=== PATIENT | female | born 1975 | race Caucasian/White ===

== ENCOUNTER 2024-06-21 08:28 | Day surgery (SDC) | payer BC ==
[~2024-06-21] VITALS: Ht 152.4 cm; Wt 88.5 kg
[~2024-06-21 08:28] MED LIST: CETIRIZINE HCL5 MG PO; IBLOOD GLUCOSE TEST STRIP 1 EA TEST VI PRN; LACTATED RINGER'S 1,000 ML IV SCH; LIDOCAINE HCL 1% 5 ML SDV INJ ONE; MIDAZOLAM HCL 5 MG/5 ML VIAL IV PRN; fentaNYL citrate 100 MCG/2 ML VIAL IV PRN
[2024-06-21 08:56] VITALS: BP 130/76
[2024-06-21] MEDS ORDERED: MIDAZOLAM HCL 5 MG/5 ML VIAL ONE (09:38)
[2024-06-21] MEDS ORDERED: fentaNYL citrate 100 MCG/2 ML VIAL ONE (09:39)
[2024-06-21 11:00] VITALS: BP 107/64
--- NOTE | 2024-06-21 11:59 | NUR ---
06/21/24 1159 Courtney Aguilar 1019 PT ARRIVED IN PACU SLEEPY. ABD SOFT AND PASSING FLATUS. 1030 RESTING. REU. 1045 AWAKENS TO VERBAL STIMULI. SITTING UP IN BED SIPPING ON WATER. 1100 C/O FEELING LITEHEADED AFTER GETTING DRESSED. LAYING DOWN ON STRETCHER. O2 SATS 96% ON RA, BP 124/77, P 65 AND R 12. 1105 RESTING. 1117 SITTING AT BEDSIDE. NO C/O'S. DC INSTRUCTIONS GIVEN. LEFT VIA W/C.
--- NOTE | 2024-06-22 10:30 | OR ---
[facility] [address], [place] [address] Signed DATE OF OPERATION: 06/21/2024 SURGEON: Heather Peña MD PREOPERATIVE DIAGNOSES: 1. Rectal bleeding. 2. Hemorrhoids. POSTOPERATIVE DIAGNOSIS: Minimal internal and external hemorrhoids. PROCEDURE: Colonoscopy without biopsy. ESTIMATED BLOOD LOSS: None. INDICATIONS: Bonilla is a 49-year-old female, asked to see me for initial screening colonoscopy. She attributes her intermittent rectal bleeding to her hemorrhoids. She has no family history of colon cancer or polyps. In the office, I had given her a pamphlet on colonoscopy. We had reviewed the nature of the test. There is risk including, but not limited to gas bloating, crampy abdominal pain, bleeding, perforation requiring surgery, and missed diagnosis. We also reviewed the written instructions for the bowel prep line by line. She also understands the need for IV conscious sedation. She understands an adult person has to take her home afterwards. She said that would probably be her . She had expressed understanding and wished to proceed. DESCRIPTION OF PROCEDURE: Bonilla was taken into our endoscopy suite and placed in the left lateral decubitus position. She took a total of 7 mg of Versed and 200 mcg of fentanyl. She is not breathing. It would probably be better for her safety in the future if she has monitored anesthesia care with propofol infusion. A digital rectal exam was performed. She had small external hemorrhoids. She had good sphincter tone. There were no masses. The adult colonoscope was introduced and advanced under direct visualization of the camera. We paused repeatedly and frequently as we slowly gave additional doses of Versed and fentanyl. We used a little bit of abdominal compression and we finally made our way around to the cecum itself. In reality, her colonoscopy is easy from a technical standpoint. That is another reason she would need monitored anesthesia care Versed and fentanyl to get her asleep for this simple Electronically Signed By: HEATHER PEÑA MD 06/22/24 1030 PATIENT NAME: BONILLA BUITRAGO OPERATIVE REPORT DATE OF : 75 REPORT #: [id number] PHYSICIAN: HEATHER PEÑA MD PCP: SAMANTHA CHATTERJEE REPORT IS CONFIDENTIAL AND NOT TO BE RELEASED WITHOUT AUTHORIZATION [facility] [address] [place] [id number] Signed procedure. We could easily see the appendiceal orifice and the ileocecal valve. The scope was then slowly withdrawn. We found no pathology throughout the entire colon. Once in the rectum, the scope was retroflexed, she has very minimal internal hemorrhoid tissue. After this, the gas was suctioned out and the colonoscope removed. Overall, Bonilla tolerated the procedure well. RECOMMENDATIONS: Bonilla can follow up in 10 years for repeat screening colonoscopy. She would be much better served with monitored anesthesia care and propofol infusion as described above. Haether Peña MD ALB/MODL /[id number] cc: MD Dr. Samantha Jimenez Copies: HEATHER PEÑA MD ~ Electronically Signed By: HEATHER PEÑA MD 06/22/24 1030 PATIENT NAME: BONILLA BUITRAGO OPERATIVE REPORT DATE OF : 75 REPORT #: [id number] PHYSICIAN: HEATHER PEÑA MD PCP: SAMANTHA CHATTERJEE REPORT IS CONFIDENTIAL AND NOT TO BE RELEASED WITHOUT AUTHORIZATION
== END 2024-06-21 11:17 | disposition home or self-care (01) ==
LOC: DS 08:28
PROVIDERS: ATTEND Colon & Rectal Surgery
PROC: 0DJD8ZZ Inspection of Lower Intestinal Tract, Via Natural or Artificial Opening Endoscopic (ICD-10-PCS; principal; 2024-06-21 09:45)
DX: K64.8 Other hemorrhoids (principal); K64.4 Residual hemorrhoidal skin tags; K62.5 Hemorrhage of anus and rectum; J45.909 Unspecified asthma, uncomplicated; E66.9 Obesity, unspecified; Z68.36 Body mass index [BMI] 36.0-36.9, adult; Z79.899 Other long term (current) drug therapy; Z91.018 Allergy to other foods; Z91.038 Other insect allergy status
CPT/HCPCS: 84703; 99153; G0500; J2250; J3010; J7121